=== PATIENT | male | born 1960 | race Caucasian/White ===

== ENCOUNTER → 2018-11-04 | Outpatient (CLI) | payer OTHER | LOC: BMCIMAGING 07:15 | PROVIDERS: ATTEND Family Medicine | DX: R22.0 Localized swelling, mass and lump, head (principal) | CPT/HCPCS: 76536-PO ==

== ENCOUNTER → 2018-11-11 | Outpatient (CLI) | payer OTHER ==
[~2018-11-11] MED LIST: IOPAMIDOL (ISOVUE-300) 100 ML BTL ONE
== END ==
LOC: FIMAGING 07:44
PROVIDERS: ATTEND Family Medicine
DX: D48.7 Neoplasm of uncertain behavior of other specified sites (principal)
CPT/HCPCS: Q9967